=== PATIENT | female | born 1930 | race Two or more races ===

== ENCOUNTER 2019-02-22 10:17 | Inpatient (IN) | payer MEDICARE, OTHER ==
[~2019-02-22] VITALS: Ht 167.6 cm; Wt 69.9 kg
[2019-02-22 10:24] VITALS: BP 158/75
--- NOTE | 2019-02-22 10:24 | NUR ---
ED Nurse Note: Pt brought in by ambulance from home d/t weakness and hallucinations started yesterday. Per daughter, pt has been dx with UTI and finished her antibiotics for it. Pt is AAO x1 (name), follows commands. No respiratory distress. VSS.
[2019-02-22] MEDS ORDERED: REMERON15 M1 ORAL (10:30)
[2019-02-22] MEDS ORDERED: SINEMET 25-1001 EAC1 ORAL (10:30)
[2019-02-22] MEDS ORDERED: NITROFURANTOIN100 M2 ORAL (10:30)
[2019-02-22] MEDS ORDERED: LEXAPRO5 MG ORAL (10:30)
--- NOTE | 2019-02-22 10:31 | NUR ---
ED Nurse Note: PER PT'S DAUGHTER, PT STARTED HAVING HALLUSINATION AFTER TAKING MACROBID 100MG TWICE A DAY AND NOTIFIED PCP AND WAS REFERRED TO COME TO [facility] [place] [facility] ER.
--- NOTE | 2019-02-22 10:42 | Emergency Room Report ---
History of Present Illness General Chief Complaint: Generalized Weakness Source: Family Member Present Illness HPI Patient present with complaints of change in mental status Daughter reports that the patient was diagnosed last week with a UTI At that time she also had some increased confusion however seemed to improve with oral antibiotics More recently now as she finished her antibiotics again she has appeared more confused and lethargic compared to her usual self there was no reports of vomiting or diarrhea patient has underlying dementia Patient herself does not provide appropriate input and family provides most of the input Allergies: Coded Allergies: No Known Allergies (Unverified , 02/22/19) Patient History Limited by: medical condition Past Medical History: see triage record Pertinent Family History: unable to obtain Reviewed Nursing Documentation: PMH: Agreed; PSxH: Agreed Nursing Documentation-PMH Past Medical History: No History, Except For Hx Hypertension: Yes Review of Systems All Other Systems: limited - Other than the ones mentioned in the history of present illness all others are reviewed however they do stay limited due to the patient's mental status Physical Exam Vital Signs Date Time Temp Pulse Resp B/P (MAP) Pulse Ox O2 Delivery O2 Flow Rate FiO2 02/22/19 10:14 98.1 67 18 144/70 97 Room Air Sp02 EP Interpretation: reviewed, normal Head: normocephalic, atraumatic Eyes: bilateral eye PERRL, bilateral eye EOMI ENT: normal pharynx Neck: supple Respiratory: lungs clear, no retraction, no accessory muscle use Cardiovascular #1: regular rate, rhythm Gastrointestinal: non tender, soft Musculoskeletal: normal inspection Neurologic: alert, responsive Skin: normal color, no rash Lymphatic: no adenopathy Medical Decision Making Diagnostic Impression: Primary Impression: UTI (urinary tract infection) Additional Impression: Encephalopathy ER Course Patient is a fairly complex patient with multiple differential to consideration including but not limited to cardiac cardiopulmonary and vascular emergencies Neurological pathology also entertained infectious pathology Patient's urine sample does show positive nitrites given the patient's change in mental status sepsis and UTI is considered patient has further hydration and antibiotics initiated and admitted for further care Labs Test 02/22/19 10:30 02/24/19 08:20 White Blood Count 6.7 K/UL (4.8-10.8) 6.7 K/UL (4.8-10.8) Red Blood Count 5.03 M/UL (4.20-5.40) 4.77 M/UL (4.20-5.40) Hemoglobin 14.3 G/DL (12.0-16.0) 13.7 G/DL (12.0-16.0) Hematocrit 44.1 % (37.0-47.0) 42.6 % (37.0-47.0) Mean Corpuscular Volume 88 FL (80-99) 89 FL (80-99) Mean Corpuscular Hemoglobin 28.5 PG (27.0-31.0) 28.8 PG (27.0-31.0) Mean Corpuscular Hemoglobin Concent 32.5 G/DL (32.0-36.0) 32.2 G/DL (32.0-36.0) Red Cell Distribution Width 13.1 % (11.6-14.8) 13.2 % (11.6-14.8) Platelet Count 208 K/UL (150-450) 165 K/UL (150-450) Mean Platelet Volume 6.7 FL (6.5-10.1) 6.1 FL (6.5-10.1) Neutrophils (%) (Auto) 65.5 % (45.0-75.0) 49.5 % (45.0-75.0) Lymphocytes (%) (Auto) 29.1 % (20.0-45.0) 42.6 % (20.0-45.0) Monocytes (%) (Auto) 4.6 % (1.0-10.0) 6.4 % (1.0-10.0) Eosinophils (%) (Auto) 0.1 % (0.0-3.0) 0.7 % (0.0-3.0) Basophils (%) (Auto) 0.8 % (0.0-2.0) 0.8 % (0.0-2.0) Urine Color Brown Urine Appearance Clear Urine pH 5 (4.5-8.0) Urine Specific [place] 1.025 (1.005-1.035) Urine Protein 2+ (NEGATIVE) Urine Glucose (UA) Negative (NEGATIVE) Urine Ketones 2+ (NEGATIVE) Urine Blood 2+ (NEGATIVE) Urine Nitrite Positive (NEGATIVE) Urine Bilirubin 1+ (NEGATIVE) Urine Ictotest Negative (NEGATIVE) Urine Urobilinogen 1 MG/DL (0.0-1.0) Urine Leukocyte Esterase 2+ (NEGATIVE) Urine RBC 2-4 /HPF (0 - 2) Urine WBC 2-4 /HPF (0 - 2) Urine Squamous Epithelial Cells Occasional /LPF Urine Bacteria Few /HPF (NONE) Urine Mucus Few /LPF (NONE/OCC) Sodium Level 141 MMOL/L (136-145) 145 MMOL/L (136-145) Potassium Level 4.0 MMOL/L (3.5-5.1) 3.8 MMOL/L (3.5-5.1) Chloride Level 106 MMOL/L (98-107) 110 MMOL/L (98-107) Carbon Dioxide Level 26 MMOL/L (21-32) 29 MMOL/L (21-32) Anion Gap 9 mmol/L (5-15) 6 mmol/L (5-15) Blood Urea Nitrogen 19 mg/dL (7-18) 17 mg/dL (7-18) Creatinine 1.2 MG/DL (0.55-1.30) 1.2 MG/DL (0.55-1.30) Estimat Glomerular Filtration Rate mL/min (>60) mL/min (>60) Glucose Level 101 MG/DL (74-106) 93 MG/DL (74-106) Lactic Acid Level 1.40 mmol/L (0.4-2.0) Calcium Level 9.6 MG/DL (8.5-10.1) 9.2 MG/DL (8.5-10.1) Total Bilirubin 0.5 MG/DL (0.2-1.0) Aspartate Amino Transf (AST/SGOT) 13 U/L (15-37) Alanine Aminotransferase (ALT/SGPT) 10 U/L (12-78) Alkaline Phosphatase 95 U/L (46-116) Total Creatine Kinase 90 U/L (26-308) Creatine Kinase MB 1.3 NG/ML (0.0-3.6) Creatine Kinase MB Relative Index 1.4 Pro-B-Type Natriuretic Peptide 239 pg/mL (0-125) Total Protein 7.5 G/DL (6.4-8.2) Albumin 4.0 G/DL (3.4-5.0) Globulin 3.5 g/dL Albumin/Globulin Ratio 1.1 (1.0-2.7) Rhythm Strip Diag. Results EP Interpretation: yes Rate: 80 Rhythm: NSR, no PVC's, no ectopy Chest X-Ray Diagnostic Results Chest X-Ray Diagnostic Results : Chest X-Ray Ordered: Yes # of Views/Limited/Complete: 1 View Indication: Chest Pain EP Interpretation: Yes Interpretation: no consolidation, no effusion, no pneumothorax Impression: No acute disease Electronically Signed by: Jodie Guevara DO Last Vital Signs Date Time Temp Pulse Resp B/P (MAP) Pulse Ox O2 Delivery O2 Flow Rate FiO2 02/22/19 10:14 98.1 67 18 144/70 97 Room Air Status: improved Disposition: ADMITTED INPATIENT Condition: Serious Jodie Guevara DO Feb 22, 2019 10:42
--- NOTE | 2019-02-22 10:45 | NUR ---
ED Nurse Note: Blood and urine sent.
--- NOTE | 2019-02-22 10:55 | NUR ---
ED Nurse Note: implementation technician at the bed side for CXR.
[2019-02-22 11:07] LABS: APPEARANCE,URINE CLEAR; BILIRUBIN, URINE 1+ (NEGATIVE); COLOR,URINE BROWN; GLUCOSE, URINE (UA) NEGATIVE (NEGATIVE); KETONES,URINE 2+ (NEGATIVE); LEUKOCYTE ESTERASE ,URINE 2+ (NEGATIVE); NITRITE,URINE POSITIVE (NEGATIVE); PH,URINE 5 (4.5-8.0); PROTEIN,URINE 2+ (NEGATIVE); UROBILINOGEN,URINE 1 MG/DL (0.0-1.0)
[2019-02-22 11:09] LABS: BASOPHILS % (AUTO) 0.8 % (0.0-2.0); EOSINOPHILS % (AUTO) 0.1 % (0.0-3.0); HEMATOCRIT 44.1 % (37.0-47.0); HEMOGLOBIN 14.3 G/DL (12.0-16.0); LYMPHOCYTES % (AUTO) 29.1 % (20.0-45.0); MEAN CORPUSCULAR VOLUME 88 FL (80-99); MONOCYTES % (AUTO) 4.6 % (1.0-10.0); NEUTROPHILS % (AUTO) 65.5 % (45.0-75.0); PLATELET COUNT 208 K/UL (150-450); RED BLOOD COUNT 5.03 M/UL (4.20-5.40); RED CELL DISTRIBUTION WIDTH 13.1 % (11.6-14.8); WHITE BLOOD COUNT 6.7 K/UL (4.8-10.8)
[2019-02-22 11:16] LABS: ANION GAP 9 mmol/L (5-15); BLOOD UREA NITROGEN 19 mg/dL (7-18); CALCIUM 9.6 MG/DL (8.5-10.1); CARBON DIOXIDE 26 MMOL/L (21-32); CHLORIDE 106 MMOL/L (98-107); CREATININE 1.2 MG/DL (0.55-1.30); SODIUM 141 MMOL/L (136-145)
[2019-02-22 11:31] LABS: ALANINE AMINOTRANSFERASE 10 U/L (12-78); ALBUMIN/GLOBULIN RATIO 1.1 (1.0-2.7); ALKALINE PHOSPHATASE 95 U/L (46-116); ASPARTATE AMINO TRANSFERASE 13 U/L (15-37); BILIRUBIN,TOTAL 0.5 MG/DL (0.2-1.0); CKMB 1.3 NG/ML (0.0-3.6); CREATINE KINASE 90 U/L (26-308)
--- NOTE | 2019-02-22 11:31 | Diagnostic Imaging Report ---
EXAM: XR Chest, 1 View CLINICAL HISTORY: Chest pain TECHNIQUE: Frontal view of the chest. COMPARISON: No relevant prior studies available. FINDINGS: Lungs: Unremarkable. The lungs appear clear. No focal consolidation. Pleural space: Unremarkable. The costophrenic angles are sharp. No visible pneumothorax. Heart: Unremarkable. No cardiomegaly. Mediastinum: Unremarkable. Bones/joints: Degenerative changes throughout the visualized spine and shoulder joints. Tubes, lines and devices: EKG leads overlie the thorax. Upper abdomen: Surgical clips overlie the left upper abdominal quadrant. IMPRESSION: No acute findings.
[2019-02-22] MEDS ORDERED: cefTRIAXone 1 GM in NS 55 ML IVPB ONE (11:45)
--- NOTE | 2019-02-22 12:35 | NUR ---
report given to harsha patient is to be transferd to room 3202-1 . patient is to be transferd via [facility]
[2019-02-22 12:40] VITALS: BP 157/67
--- NOTE | 2019-02-22 12:40 | NUR ---
NURSE NOTES:ADMITTED 88 FEMALE FR. HOME BECAUSE OF GENERALIZED WEAKNESS/AMS SECONDARY TO H/O UTI A WEEK AGO,REPORT FR. ER.GIVEN BY SIVA GRAY.PATIENT A/O X1,FARSI SPEAKING,EXTREMITIES MOBILE,SKIN INTACT,ROOM AIR,INCONTINENT OF URINE.ACCOMPANIED BY DAUGHTER(JOSE)MED INFO TAKEN FR. SAME.LISA AT BEDSIDE.
--- NOTE | 2019-02-22 13:20 | NUR ---
NURSE NOTES:PLACED A CALL TO DR. MARIE THRU EMERGENCY SELECTION RE:NEEDS ADMISSION ORDERS.FAMILY INFORMED(JOSE)DAUGHTER.
--- NOTE | 2019-02-22 13:30 | NUR ---
NURSE NOTES:PATIENT WAS VERY AGITATED,RESTLESS,TRYING TO GET OUT OF BED,DAUGHTER WANTS SOME MED TO CALM HER DOWN.PLACED A CALL AGAIN TO DR. MARIE,AND DAUGHTER MADE AWARE.CHARGE NURSE(ABRAHAM GRAY)INFORMED.DEBBI GRAY(DAY DESIGN CONSULTANT)INFORMED ALSO THAT NO RETURN CALL FR.DR. MARIE.STATED [facility] WILL CALL .FAMILY UPDATED.
--- NOTE | 2019-02-22 14:16 | NUR ---
NURSE NOTES:DR. MARIE RETURNED CALL,ORDERS CARRIED OUT.ZYPREXA 5MG PO GIVEN.DAUGHTER AT BEDSIDE
[2019-02-22] MEDS ORDERED: ALPRAZolam 0.25mg tab ORAL PRN (14:30)
--- NOTE | 2019-02-22 15:30 | NUR ---
NURSE NOTES:PATIENT DOZING,NO SIGN OF AGITATION.SON AND SIDE SEAM TENDER AT BEDSIDE.
[2019-02-22 15:35] VITALS: BP 147/78
--- NOTE | 2019-02-22 16:00 | NUR ---
NURSE NOTES:PATIENT SITTING IN CHAIR,CONVERSANT WITH FAMILY,FARSI SPEAKING.
[2019-02-22] MEDS: Zosyn 3.375gm q8h **Extended infusion IVPB SCH ×2 (16:28)
[2019-02-22] MEDS: Levodopa/Carbidopa 25/100 tab ORAL SCH (17:55)
--- NOTE | 2019-02-22 18:30 | NUR ---
NURSE NOTES:2 DAUGHTER/SON AT BEDSIDE AT CLAIMS PATIENT IS VERY AGITATED AGAIN,AND RESTLESS,REQUESTAED FOR MED. ZYPREXA 5MG.PO GIVEN,PATIENT TOOK MED WITHOUT HESITATION.ADVISED FAMILY TO LET NURSE KNOW WHEN THEY WILL LEAVE,INSTRUCTED ALSO TO REMIND PATIENT USE OF CALL LIGHT.
--- NOTE | 2019-02-22 19:08 | NUR ---
NURSE NOTES:DR. NEIL CALLED IN CONSULT.UPDATED PATIENTS STATUS AND CURRENT MEDS.ORDERS CARRIED OUT.FAMILY INFORMED.
--- NOTE | 2019-02-22 19:20 | NUR ---
HAND-OFF: Report given to SILVIANO GRAY.PATIENT STABLE,FAMILY AT BEDSIDE.
--- NOTE | 2019-02-22 19:21 | NUR ---
NURSE NOTES: Received report & pt from ISAAC Jenkins. Pt lying in bed, a&ox1 (name), in room air, family members at bedside. No s/s of acute distress & no s/s of pain at this time. IV site intact with IVF running as ordered. Skin intact, able to move all extremities. Bed in lowest position & bed alarm on, call light within reach. Will continue to monitor.
[2019-02-22 20:00] VITALS: BP 144/75
--- NOTE | 2019-02-22 23:25 | NUR ---
NURSE NOTES: Pt became restless & even more agitated. Also trying to get out of bed. Re-oriented pt & tried to calm down. Made sure bed alarm is on. Charge nurse Se at bedside with pt. Called Dr. Sanabria & left a msg for additional orders for pt's increased agitation. Awaiting call back.
[2019-02-22] MEDS ORDERED: Haloperidol Decanoate 50mg Inj IM PRN ×2 (23:30→23:45)
--- NOTE | 2019-02-22 23:33 | NUR ---
NURSE NOTES: Dr. Sanabria called back with new orders for Ativan 1mg PO Q6HR PRN & Haldol 5mg IM Q6HR PRN both for agitation. Orders carried out.
[2019-02-22] MEDS: LORazepam 1mg tab ORAL PRN ×2 (23:50→23:56)
--- NOTE | 2019-02-22 23:50 | NUR ---
NURSE NOTES: RN pulled out ativan 1mg PO from pyxis. Upon administering med to pt, pt spit out the whole medication & dropped tablet on the floor with charge nurse Se at bedside with pt. Wasted the ativan in pyxis as witnessed by ISAAC Jose. RN pulled another dose & scanned in eMAR, this time pt was able to swallow the whole medication.
[2019-02-23 04:47] VITALS: BP 157/70
[2019-02-23] MEDS: Zosyn 3.375gm q8h **Extended infusion IVPB SCH ×6 (05:06→22:32)
[2019-02-23] MEDS ORDERED: Haloperidol 5mg/ml Inj IM PRN (07:00)
--- NOTE | 2019-02-23 07:24 | NUR ---
HAND-OFF: Report given to ISAAC Lara. Pt in stable condition. Rounds done with AM RN shift.
--- NOTE | 2019-02-23 07:57 | NUR ---
NURSE NOTES: Received report from Lazara GRAY. Patient is awake alert and oriented x1 only. Patient is confused. Attempted to put on SCD's, but patient tried to hit staff when attempted. IV running Zosyn per order. Patient clean and dry at this time. Fall precautions maintained, side rails upx2, bed low and locked, bed alarm armed, call light in reach. Will continue to monitor.
[2019-02-23 08:00] VITALS: BP 137/99
[2019-02-23] MEDS ORDERED: ALPRAZolam 0.5mg tab ORAL SCH (09:00)
[2019-02-23] MEDS: Donepezil 10mg tab ORAL SCH (09:38)
[2019-02-23] MEDS: Irbesartan 150mg tablet ORAL SCH (09:38)
[2019-02-23] MEDS: Levodopa/Carbidopa 25/100 tab ORAL SCH ×2 (09:39→20:34)
--- NOTE | 2019-02-23 10:06 | NUR ---
NURSE NOTES: Bed linens changed and patient clean. Skin assessed intact, moisture barrier ointment applied to buttocks and gael area for skin protection. Patient repositioned. Patient's daughter at the bedside. Will continue to monitor.
[2019-02-23 12:00] VITALS: BP 108/57
--- NOTE | 2019-02-23 13:27 | History & Physical ---
History and Physical History & Physicial HP dictated # [id number] Cornelio Ferrer MD Feb 23, 2019 13:27
--- NOTE | 2019-02-23 13:51 | NUR ---
NURSE NOTES: Urine culture collected and sent to lab.
[2019-02-23] MEDS: LORazepam 1mg tab ORAL PRN (15:44)
[2019-02-23 16:00] VITALS: BP 140/107
--- NOTE | 2019-02-23 17:30 | NUR ---
NURSE NOTES: Patient given full bed bath, cleaned, changed. All bed linens changed. Patient's son is at the bedside. Patient continues to be agitated. Will continue to monitor.
--- NOTE | 2019-02-23 19:05 | NUR ---
NURSE NOTES: Patient appears less agitated. Patient's children are at the bedside. Will endorse to nightclub manager.
--- NOTE | 2019-02-23 19:33 | NUR ---
HAND-OFF: Report given to Rebeca GRAY. Patient is in stable condition.
--- NOTE | 2019-02-23 19:38 | NUR ---
NURSE NOTES: Received report from ISAAC Lara. Patient is in bed, resting well. No agitation noted. IV site patent. Family at bedside. Bed low, bed alarm on. Will continue to monitor. call light within reach.
[2019-02-23 20:00] VITALS: BP 107/52
--- NOTE | 2019-02-23 21:42 | NUR ---
NURSE NOTES: Family requesting to hold Zyprexa this evening. No agitation noted. Will continue to monitor.
--- NOTE | 2019-02-23 21:45 | History and Physical Report ---
DATE OF ADMISSION: 02/22/2019 CHIEF COMPLAINT: The patient had some chills at home. HISTORY OF PRESENT ILLNESS: This is an 88-year-old [place] female who lives at home with a caregiver. The patient had a recent urinary tract infection, was given nitrofurantoin by PMD. Last week, she finished taking it however on Sunday she started having chills. PMD was called and she advised to take the patient to the emergency room yesterday. The patient was seen in the ER here and UA showing 2 to 4 wbc's per high-power field and 2+ protein, not very impressive, however the patient was admitted with diagnosis of urinary tract infection. The patient was started on antibiotics. Daughter noticed that the patient also has some slurred speech today and before admission she was agitated, not sleeping. PAST MEDICAL HISTORY: History of hypertension. MEDICATIONS: Reviewed in the EMR. SOCIAL HISTORY: No history of smoking or alcohol abuse. The patient lives at home with caregiver. ALLERGIES: No known drug allergies. REVIEW OF SYSTEMS: As above. PHYSICAL EXAMINATION: GENERAL: The patient is an elderly female, in no acute distress. VITAL SIGNS: Blood pressure is 108/57, pulse 58, temperature 98.6, respiratory rate 19. HEENT: [place] conjunctivae. Anicteric sclerae. NECK: Supple. LUNGS: Clear to auscultation HEART: S1, S2 without murmurs or rubs ABDOMEN: Soft and nontender. EXTREMITIES: No cyanosis or edema. LABORATORY FINDINGS: CBC shows a WBC of 6700, hematocrit is 44.1, hemoglobin is 14.3, platelets 208,000. Chemistry panel shows a serum sodium 141, potassium 4, chloride 106, CO2 26, BUN is 19, creatinine 1.2. Albumin is 4. Lactic acid 1.4. ASSESSMENT: This is a 88-year-old [place] female who was admitted with some agitation, not sleeping for the past couple days, it appears that she has history of underlying dementia as well. She was recently treated for urinary tract infection. She was admitted for chills, was thought to have urinary tract infection again although urinalysis is not very impressive. This morning also she had some slurred speech which is new according to the daughter. PLAN: The patient will be on antibiotics. I will get urine cultures and if the culture is negative, we will discontinue antibiotics. We will get also a psychiatry consult. Physical therapy will be ordered. The patient will be seen by psychiatrist for management of agitation. She was started on Zyprexa last night and she appears calm at this point. Cornelio Ferrer M.D. DR: Ange JOB#: [id number] CC: JOHANNA
[2019-02-23] MEDS ORDERED: ALPRAZolam 0.25mg tab ORAL PRN (22:30)
[2019-02-24] VITALS: BP 121/81
[2019-02-24 04:00] VITALS: BP 106/52
[2019-02-24] MEDS: Zosyn 3.375gm q8h **Extended infusion IVPB SCH ×6 (05:34→22:22)
--- NOTE | 2019-02-24 07:03 | NUR ---
NURSE NOTES: Patient did not void shift leader. Bladder scanner showed 0ml residual. Dr. Ferrer called. Awaiting call back.
--- NOTE | 2019-02-24 07:32 | NUR ---
HAND-OFF: Report given to ISAAC Barillas. Patient stable.
--- NOTE | 2019-02-24 07:43 | NUR ---
NURSE NOTES: Received report from ISAAC Jose. Rounding done with outgoing nurse. Patient asleep and Zosyn antibiotics running at this time. Bed in lowest position, call light within reach. Will continue to [facility].
[2019-02-24 08:00] VITALS: BP 110/73
[2019-02-24] MEDS: D5 1/2NS 1,000 ML IV SCH ×2 (08:43→22:23)
[2019-02-24] MEDS: Donepezil 10mg tab ORAL SCH (08:51)
[2019-02-24] MEDS: Levodopa/Carbidopa 25/100 tab ORAL SCH ×2 (08:51→20:33)
[2019-02-24] MEDS: Irbesartan 150mg tablet ORAL SCH (08:51)
[2019-02-24 08:54] LABS: BASOPHILS % (AUTO) 0.8 % (0.0-2.0); EOSINOPHILS % (AUTO) 0.7 % (0.0-3.0); HEMATOCRIT 42.6 % (37.0-47.0); HEMOGLOBIN 13.7 G/DL (12.0-16.0); LYMPHOCYTES % (AUTO) 42.6 % (20.0-45.0); MEAN CORPUSCULAR VOLUME 89 FL (80-99); MONOCYTES % (AUTO) 6.4 % (1.0-10.0); NEUTROPHILS % (AUTO) 49.5 % (45.0-75.0); PLATELET COUNT 165 K/UL (150-450); RED BLOOD COUNT 4.77 M/UL (4.20-5.40); RED CELL DISTRIBUTION WIDTH 13.2 % (11.6-14.8); WHITE BLOOD COUNT 6.7 K/UL (4.8-10.8)
[2019-02-24] MEDS ORDERED: ALPRAZolam 0.5mg tab ORAL SCH (09:00)
[2019-02-24 09:06] LABS: ANION GAP 6 mmol/L (5-15); BLOOD UREA NITROGEN 17 mg/dL (7-18); CALCIUM 9.2 MG/DL (8.5-10.1); CARBON DIOXIDE 29 MMOL/L (21-32); CHLORIDE 110 MMOL/L (98-107); CREATININE 1.2 MG/DL (0.55-1.30); POTASSIUM 3.8 MMOL/L (3.5-5.1); SODIUM 145 MMOL/L (136-145)
--- NOTE | 2019-02-24 10:36 | NUR ---
P.T Notes: P.T evaluation attempted however unsuccessful due to patient too lethargic to participate in P.T evaluation. Will reattempt when pt is fully awake and participative. RN notified.
--- NOTE | 2019-02-24 11:20 | Initial Psychiatric Evaluation ---
Psychiatry Consultation Psychiatry Consultation Referring physician: 02/23/19 Chief Complaint: Generalized Weakness History of Present Illness: 88-year-old Vietnamese female with hx of anxiety do and dementia with behavioral disturbance who is admitted for uti and AMS. the pt is confused and has av hallucination. the pt is disorganized and unable to provide hx. the hx was gathered from the daughter. the pt has been more confused over the past several days. the pt has hx of anxiety and has been taking xanax for 30 years. Allergies: Coded Allergies: No Known Allergies (Unverified , 02/22/19) Medication History Scheduled Carbidopa/Levodopa 25-100 Mg* (Sinemet 25-100 Mg Tablet*), 1 TAB ORAL THREE TIMES A DAY, (Reported) Escitalopram Oxalate (Lexapro), 10 MG ORAL DAILY, (Reported) Mirtazapine (Remeron), 15 MG ORAL BEDTIME, (Reported) Nitrofurantoin Monohyd/M-Cryst* (Macrobid 100 Mg*), 100 MG ORAL EVERY 12 HOURS, (Reported) Patient History Limited by: medical condition History Provided By: Family Member, Medical Record, PMD Objective Data Height (Feet): 5 Height (Inches): 6.00 Weight (Pounds): 154 Appearance: no abnormalities noted Behavior Mannerisms: good eye contact Mood: anxious, agitated Thought Process: tangential, confusion, disorganized Perceptual Disturbances: visual, auditory Suicidal Ideation: not present Assessment/Plan Problem List: (1) Acute metabolic encephalopathy ICD Codes: G93.41 - Metabolic encephalopathy SNOMED: 81248549, 107068108 Assessment/Plan: zyprexa 5mg po qhs dc xanax remeron 15mg po qhs zyprexa prn ativan Mirtha Sparks MD Feb 24, 2019 11:20
[2019-02-24 12:00] VITALS: BP 145/76
[2019-02-24] MEDS: ALPRAZolam 0.25mg tab ORAL SCH ×3 (13:00→22:22)
--- NOTE | 2019-02-24 13:11 | NUR ---
CASE MANAGEMENT:REVIEW 88YR OLD FEMALE BIBA FROM HOME CC: CHILLS. GENERALIZED WEAKNESS PMH: RECENT UTI ON ABX SI:UTI. GENERALIZED WEAKNESS 98.1 67 18 144/70 97% ON RA IS: 1L NS BOLUS IV ROCEPHIN Q24 CXR BLOOD CX : TO MED/SURG 3 EAST INTERQUAL CRITERIA MET
--- NOTE | 2019-02-24 13:24 | General Progress Note ---
Assessment/Plan Problem List: (1) Parkinson disease ICD Codes: G20 - Parkinson's disease SNOMED: 64516251 (2) Dementia ICD Codes: F03.90 - Unspecified dementia without behavioral disturbance SNOMED: 79232424 (3) Generalized weakness ICD Codes: R53.1 - Weakness SNOMED: 83802002 (4) HTN (hypertension) ICD Codes: I10 - Essential (primary) hypertension SNOMED: 43191274 Assessment/Plan: DC antibiotics since urine culture is negative. Await neurology consult. Psychiatry follow-up. Physical therapy I discussed the case with daughter. Subjective Allergies: Coded Allergies: No Known Allergies (Unverified , 02/22/19) Subjective Patient is better today. She feels somewhat dizzy. Objective Last 24 Hour Vital Signs Date Time Temp Pulse Resp B/P (MAP) Pulse Ox O2 Delivery O2 Flow Rate FiO2 02/24/19 12:00 97.8 66 18 145/76 (99) 96 02/24/19 09:00 Room Air 02/24/19 08:52 59 110/73 02/24/19 08:51 110/73 02/24/19 08:00 98.1 59 18 110/73 (85) 96 02/24/19 04:10 57 02/24/19 04:00 97.6 51 20 106/52 (70) 96 02/24/19 00:00 98.0 69 16 121/81 (94) 96 02/23/19 21:00 Room Air 02/23/19 20:00 98.7 69 16 107/52 (70) 96 02/23/19 16:00 97.6 72 17 140/107 (118) 95 Intake and Output 02/23/19 02/24/19 19:00 07:00 Intake Total 512.5 ml 25 ml Balance 512.5 ml 25 ml Intake Oral 320 ml 25 ml IV Total 192.5 ml # Voids 3 Laboratory Tests 02/24/19 08:20: White Blood Count 6.7, Red Blood Count 4.77, Hemoglobin 13.7, Hematocrit 42.6, Mean Corpuscular Volume 89, Mean Corpuscular Hemoglobin 28.8, Mean Corpuscular Hemoglobin Concent 32.2, Red Cell Distribution Width 13.2, Platelet Count 165, Mean Platelet Volume 6.1L, Neutrophils (%) (Auto) 49.5, Lymphocytes (%) (Auto) 42.6, Monocytes (%) (Auto) 6.4, Eosinophils (%) (Auto) 0.7, Basophils (%) (Auto ) 0.8, Sodium Level 145, Potassium Level 3.8, Chloride Level 110H, Carbon Dioxide Level 29, Anion Gap 6, Blood Urea Nitrogen 17, Creatinine 1.2, Estimat Glomerular Filtration Rate , Glucose Level 93, Calcium Level 9.2 Height (Feet): 5 Height (Inches): 6.00 Weight (Pounds): 154 Cardiovascular: normal rate Respiratory/Chest: lungs clear Genitourinary/Rectal: other Cornelio Ferrer MD Feb 24, 2019 13:24
--- NOTE | 2019-02-24 15:45 | NUR ---
NURSE NOTES: Dr. Leary ordered 1. strict I&O 2. Bladder scan BID and call if >500ml. Noted and carried out.
--- NOTE | 2019-02-24 15:52 | NUR ---
NURSE NOTES: Bladder scan was done. (R: 252 ml) Dr. Leary was notified.
[2019-02-24 16:00] VITALS: BP 113/60
--- NOTE | 2019-02-24 19:24 | NUR ---
HAND-OFF: Report given to ISAAC Jose.
--- NOTE | 2019-02-24 19:41 | NUR ---
NURSE NOTES: Received report from ISAAC Barillas.
--- NOTE | 2019-02-24 19:53 | Psych Consult Progress Note ---
Psychiatry Progress Note Psychiatry Progress Note Subjective the pt is less anxious and agitated the pt is confused family at bedside Medications Current Medications Medications (Trade) Dose Ordered Sig/Riri Route PRN Reason Start Time Stop Time Status Last Admin Dose Admin Alprazolam (Xanax) 0.25 mg QHS PRN ORAL For Anxiety 02/23/19 22:30 03/02/19 22:29 Alprazolam (Xanax) 0.25 mg TID ORAL 02/24/19 13:00 03/03/19 12:59 Atenolol (Tenormin) 50 mg DAILY ORAL 02/23/19 09:00 03/25/19 08:59 02/24/19 08:52 Atorvastatin Calcium (Lipitor) 10 mg BEDTIME ORAL 02/22/19 21:00 03/24/19 20:59 02/23/19 20:35 Carbidopa/Levodopa (Sinemet 25/100) 1 tab Q12HR ORAL 02/22/19 18:00 03/24/19 17:59 02/24/19 08:51 Dextrose/Sodium Chloride 1,000 ml @ 75 mls/hr [id number] IV 02/24/19 07:45 03/26/19 07:44 02/24/19 08:43 Donepezil HCl (Aricept) 10 mg DAILY ORAL 02/23/19 09:00 03/25/19 08:59 02/24/19 08:51 Escitalopram Oxalate (Lexapro) 20 mg DAILY ORAL 02/25/19 09:00 03/27/19 08:59 Haloperidol Lactate (Haldol) 5 mg Q6H PRN IM For agitation 02/23/19 07:00 03/24/19 23:44 Irbesartan (Avapro) 150 mg DAILY ORAL 02/23/19 09:00 03/25/19 08:59 02/24/19 08:51 Mirtazapine (Remeron) 7.5 mg BEDTIME ORAL 02/24/19 21:00 03/26/19 20:59 Olanzapine (ZyPREXA) 5 mg Q6H PRN ORAL Agitation 02/22/19 19:15 03/24/19 19:14 02/23/19 06:31 Olanzapine (ZyPREXA) 5 mg QHS ORAL 02/22/19 21:00 03/24/19 20:59 02/22/19 20:19 Piperacillin Sod/ Tazobactam Sod 3.375 gm/Sodium Chloride 110 ml @ 27.5 mls/hr EVERY 8 HOURS IVPB 02/22/19 16:00 02/27/19 15:59 02/24/19 13:48 Neurological/Psychiatric: Reports: anxiety, depressed Allergies: Coded Allergies: No Known Allergies (Unverified , 02/22/19) Objective Data Height (Feet): 5 Height (Inches): 6.00 Weight (Pounds): 154 General Appearance: alert, confused, agitated Appearance: well groomed Behavior Mannerisms: good eye contact Mental Status Exam - Affect: blunted Mental Status Exam - Mood: anxious, agitated Mental Status Exam - Thought P: tangential, confusion, disorganized Mental Status Exam - Thought C: delusions (specify) Perceptual Disturbances: hallucinations, visual, auditory Mental Status Exam - Suicidal: not present Assessment/Plan Problem List: (1) Acute metabolic encephalopathy ICD Codes: G93.41 - Metabolic encephalopathy SNOMED: 49376896, 690668672 Status: progressing Assessment/Plan: zyprexa 5mg po qhs restart xanax per family's request remeron 15mg po qhs zyprexa prn Mirtha Sanabria MD Feb 24, 2019 19:53
[2019-02-24 20:00] VITALS: BP 154/75
--- NOTE | 2019-02-24 20:45 | NUR ---
NURSE NOTES: Patient awake, alert, talkative. AOx2. Less, lethargy, no agitation. Reoriented patient. IV site patent. Due meds given, needs attended to. Bed low, call light within reach.
--- NOTE | 2019-02-24 22:15 | Consultation ---
Consult Note Consult Note NEUROLOGY CONSULTATION: Full note dictated #[id number] 88-year-old, right-handed, lady, with a past history of hypertension, bilateral knee surgery, and a diagnosis of Alzheimer's disease and Parkinson's disease made at [facility]. She also has a long history of anxiety and depression for which she has been on Xanax for numerous years. She was functioning relatively well until recently when she developed an alteration in her level of consciousness and shaking chills. She was started on medicine for a urinary tract infection and improved significantly following that. She did however had a relapse of generalized weakness, and weakness of her legs when she stood, and as a result of that was brought into [facility] emergency room and admitted. When she was brought in she was confused disoriented agitated having auditory and visual hallucinations and not her normal self. Since she has been in the hospital she has improved significantly as per her son. ON EXAMINATION: Awake and alert Oriented to self only Memory: 3/3-0, 0/3-1 and 3 Unable to remember presidents. Unable to do math. Unable to do visual-spatial problems. Speech mildly dysarthric Language problems with expression of language Cranial nerves II through XII intact. Motor G 5/5. Sensory intact light touch. Reflexes: 1+ and bilaterally symmetrical at the biceps, triceps, brachioradialis, and knees. 0 at both ankles. Plantar responses flexor. Dopzxd-xm-[id number] normal. Stance and gait deferred. IMPRESSION: Toxic metabolic encephalopathy superimposed on structural brain disease related to Alzheimer's disease. The patient does not demonstrate any signs of Parkinson's disease at this point in time. Thus the diagnosis of Parkinson's disease is suspect. RECOMMENDATIONS: Continue present management. Continue Aricept. Treatment of psychiatric illness as per Dr. Sanabria If the patient continues to demonstrate no signs of Parkinson's disease then Sinemet should be discontinued as that could be causing more agitation. We will order EEG to evaluate the patient for the degree and type of encephalopathy. Work-up for treatable causes of altered mental state. Mobilize with the help of PT and OT Observe closely. Bennie Tim M.D., M.S.P.H. Bennie Tim MD Feb 24, 2019 22:15
--- NOTE | 2019-02-24 22:15 | Consultation ---
DATE OF CONSULTATION: 02/24/2019 CONSULTING PHYSICIAN: Kassi Leary M.D. REQUESTING PHYSICIAN: Cornelio Ferrer M.D. REASON FOR CONSULTATION: Difficulty in urination and urinary incontinence. PRESENT ILLNESS: This is an 88-year-old white female, who was admitted to the hospital with a diagnoses of dementia, being chills, questionable fever, and questionable urinary tract infection. The patient was monitored and was placed on antibiotics and a neurological consult was obtained. The patient had a bladder scan, which showed a range of 100 mL to 200 mL of residual urine. However, the latest BUN is 17 and creatinine of 1.2. The patient's latest white blood count is 6.7. Today, according to the family of the patient, she is doing much better, more alert, and communicating well without any apparent complaint. The patient has few episodes of urinary tract infection in the past, but not recently, but she has a problem with incontinence and wearing diaper. PHYSICAL EXAMINATION: UROLOGICAL: Urological exam confined to the abdomen, which showed no organomegaly, tenderness, or mass. EXTERNAL GENITALIA: Negative. BACK: No CVA tenderness. EXTREMITIES: Negative. IMPRESSION: Urinary incontinence, rule out urinary tract infection. The urine culture was obtained yesterday and it was checked and there is no growth at this time. Thank you very much for giving me opportunity to see the patient. Kassi Leary M.D. DR: VALERIANO JOB#: [id number] CC:
--- NOTE | 2019-02-24 23:45 | Consultation ---
DATE OF CONSULTATION: 02/24/2019 NEUROLOGY CONSULTATION CONSULTING PHYSICIAN: Bennie Tim M.D. REQUESTING PHYSICIAN: Cornelio Ferrer M.D. HISTORY: Ms. Bailey Orozco is an 88-year-old, right-handed, lady, who does have a past history of hypertension, bilateral knee surgery, and a diagnosis of Alzheimer disease and Parkinson disease made at [facility]. She also has a history of anxiety and depression, for which she has been on Xanax for numerous years. She was functioning relatively well until recently when she developed an alteration in her mental state and shaking chills. She was started on medicine for a urinary tract infection and improved significantly following that. She then, however, had a relapse of symptoms associated with generalized weakness, shakiness, and weakness in the legs when she stood and as a result of that she was brought into the [facility] emergency room and admitted on 02/22/2019. She was noted to be confused, disoriented, agitated, and was having auditory and visual hallucinations. She was treated with multiple different neuroleptic drugs and has since improved. As per her son, she is significantly better today. She, however, continues to be confused, disoriented, and still not back to her normal self. PAST MEDICAL HISTORY: Significant for hypertension, bilateral knee surgery, Alzheimer disease, Parkinson disease, anxiety, and depression. FAMILY HISTORY: Nothing significant. PERSONAL HISTORY: Home: She lives at home with family. Work: She is retired housewife. Habits: There is no history of alcohol, tobacco, or illicit drug use. MEDICATIONS: Present medications include Lexapro, Remeron, Xanax, Aricept, atenolol, Avapro, Haldol p.r.n., atorvastatin, Zyprexa, Sinemet 25/100 twice a day, and Zosyn. PHYSICAL EXAMINATION: GENERAL: She is a well-developed, well-nourished, pleasant lady, lying in bed, in no acute distress. VITAL SIGNS: Pulse 68/minute, blood pressure 154/75 mmHg, respirations 18/minute, and temperature 97.5 degrees Fahrenheit. HEAD: Normocephalic and atraumatic. EENT: Examination benign. NECK: No neck rigidity was observed. NEUROLOGIC EXAMINATION: MENTAL STATUS EXAMINATION: She was awake and alert. She was oriented to self only. She had no idea of where she was or what the date it was. She was able to recall 3/3 words immediately, but could not remember any of them in 1 minute and 3 minutes. She was unable to tell me who the present President was and who prior presidents were. Her mathematical skills were impaired. Her visuospatial function was also impaired. SPEECH: She had a mild dysarthria. LANGUAGE: She had problems with expression of language, but she was able to comprehend relatively well. CRANIAL NERVE EXAMINATION: II: The visual dias were intact on confrontation testing. III, IV & : The external ocular movements were full and the pupils were 3 mm in diameter and equal, round, regular, and reactive to light. V: She had normal facial sensations, and the temporales, masseters, and pterygoids functioned normally. VII: She had normal facial expressions and no facial asymmetry. VIII: She was able to hear well bilaterally and had no nystagmus. IX: The palate moved symmetrically on phonation. X: She had no hoarseness of voice. XI: The sternocleidomastoids and trapezii functioned normally. XII: The tongue was in the midline without any fasciculations or atrophy. MOTOR SYSTEM: The tone was normal in all four extremities. Examination of muscle mass revealed no focal wasting. Examination of power revealed G 5/5 power in all muscle groups. SENSORY EXAMINATION: She had intact sensations to pinprick and light touch. REFLEXES: 1+ and bilaterally symmetrical at the biceps, triceps, brachioradialis, and knees and 0 at both ankles. The plantar responses were flexor bilaterally. COORDINATION: She performed well on [id number]-jr-xzlf testing. She was unable to perform lydc-sa-nvmo testing. STANCE & GAIT: Deferred. DIAGNOSTIC IMPRESSION: 1. Ms. Bailey Orozco is an 88-year-old, right-handed, lady, who does have a past history of hypertension, bilateral knee surgery, Alzheimer's disease, Parkinson's disease, and a long history of anxiety and depression. She was hospitalized for generalized weakness, unsteadiness on her feet, and what was felt to be an infectious process. She has since been started on appropriate antibiotics, fluids and electrolytes, and as per her son, has improved significantly. In addition, she has also been given neuroleptics and Aricept. 2. On neurological examination, at this time, she is awake and alert, but oriented to self only. She has significant problems with recent and remote memory, visuospatial function, higher cognitive function, and language. In addition, she has a mild dysarthria. She, however, does not demonstrate any focal or lateralizing neurological findings. The deep tendon reflexes are globally diminished. 3. Laboratory data revealed a relatively normal CBC, a relatively normal chemistry panel, elevated BNP at 239 and on admission, her urinalysis revealed 2+ leukocyte esterase and 2-4 red blood cells and white blood cells per high-power field. 4. The patient's history and neurological examination associated with the laboratory data are most consistent with a toxic metabolic encephalopathy, superimposed on structural brain disease related to Alzheimer disease. At this point in time, the patient is not exhibiting any signs of Parkinson's disease and thus the diagnosis is suspect. RECOMMENDATIONS: 1. Agree with management thus far. 2. Would continue Aricept. 3. Treatment of psychiatric illness as per Dr. Sanabria. 4. If the patient continues to demonstrate no signs of Parkinson disease, then the Sinemet should be discontinued as it could cause more agitation. 5. An EEG will be ordered to evaluate the patient for the degree and type of encephalopathy. 6. The patient should be worked up thoroughly for other treatable causes of altered mental state, with in addition to the laboratory tests already done, a B12 level, folate level, vitamin D level, ESR, RPR, glycohemoglobin, Westergren sedimentation rate, TSH, and serum ammonia. 7. The patient should be mobilized with the help of physical and occupational therapy. 8. The patient will be observed closely and depending on how she fares over the next day or so, further recommendations will be given. Thank you for entrusting me with the care of Ms. Orozco. I shall follow her with you. Bennie Tim M.D., M.S.P.H. DR: AVA JOB#: [id number] JOHANNA
[2019-02-25] VITALS: BP 147/72
[2019-02-25 04:00] VITALS: BP 156/70
[2019-02-25] MEDS: Zosyn 3.375gm q8h **Extended infusion IVPB SCH ×6 (06:03→21:57)
--- NOTE | 2019-02-25 07:12 | NUR ---
NURSE NOTES: 0500 bladder scan 105 ml. 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
[2019-02-25 08:00] VITALS: BP 144/66
--- NOTE | 2019-02-25 08:08 | NUR ---
NURSE NOTES: during shift change patient alert awake verbal, stating she want to go home when Dr. Ferrer comes" oriented to person, and place. call light with in reach,bed on low position locked, alarm on, Purewick in place, IV running. will continue to monitor.
--- NOTE | 2019-02-25 08:55 | NUR ---
PT EVALUATION NOTE Patient seen for initial evaluation, see complete evaluation for details. Patient presents with generalized weakness, impaired balance and deficits in functional mobility. Patient will benefit from skilled inpatient PT intervention to address strength, balance, safety and functional mobility. Recommend discharge home with home PT and full-time caregiver vs short term SNF for further rehab depending on patient's progress once medically cleared by MD. DME needs to be determined. Addendum: 02/25/19 at 1016 by KEHINDE SCOTT PT Amended: Links added.
[2019-02-25] MEDS: Levodopa/Carbidopa 25/100 tab ORAL SCH ×2 (10:14→21:56)
[2019-02-25] MEDS: Irbesartan 150mg tablet ORAL SCH (10:14)
[2019-02-25] MEDS: Donepezil 10mg tab ORAL SCH (10:14)
[2019-02-25] MEDS: ALPRAZolam 0.25mg tab ORAL SCH ×2 (10:15→18:24)
[2019-02-25 12:44] VITALS: BP 139/71
[2019-02-25] MEDS: D5 1/2NS 1,000 ML IV SCH (13:08)
[2019-02-25] MEDS ORDERED: LIPITOR10 MG ORAL (14:49)
[2019-02-25] MEDS ORDERED: DONEPEZIL HCL10 MG ORAL (14:49)
[2019-02-25] MEDS ORDERED: LEXAPRO10 MG ORAL (14:49)
[2019-02-25] MEDS ORDERED: ATENOLOL50 MG ORAL (14:49)
[2019-02-25] MEDS ORDERED: OLANZAPINE5 MG ORAL (14:49)
[2019-02-25] MEDS ORDERED: ALPRAZOLAM0.25 MG ORAL (14:49)
[2019-02-25] MEDS ORDERED: D5 1/2NS 1000ml IV ONE (14:52)
--- NOTE | 2019-02-25 14:57 | General Progress Note ---
Assessment/Plan Problem List: (1) Parkinson disease ICD Codes: G20 - Parkinson's disease SNOMED: 26525206 (2) Dementia ICD Codes: F03.90 - Unspecified dementia without behavioral disturbance SNOMED: 23790322 (3) Generalized weakness ICD Codes: R53.1 - Weakness SNOMED: 30586593 (4) HTN (hypertension) ICD Codes: I10 - Essential (primary) hypertension SNOMED: 91143351 Status: progressing Assessment/Plan: Continue with current medications. I discussed the case with Dr. Sanabria. Discharge today after seen by her Subjective Allergies: Coded Allergies: No Known Allergies (Unverified , 02/22/19) Subjective She is able to communicate today. She appears to be calm Objective Last 24 Hour Vital Signs Date Time Temp Pulse Resp B/P (MAP) Pulse Ox O2 Delivery O2 Flow Rate FiO2 02/25/19 12:44 98.2 66 20 139/71 (93) 98 02/25/19 10:18 57 144/66 02/25/19 10:14 144/66 02/25/19 08:00 97.3 57 20 144/66 (92) 94 02/25/19 04:00 97.5 53 18 156/70 (98) 95 02/25/19 00:00 97.8 62 18 147/72 (97) 97 02/24/19 21:00 Room Air 02/24/19 20:00 97.5 68 18 154/75 (101) 97 02/24/19 16:00 98.0 59 18 113/60 (77) 94 Intake and Output 02/24/19 02/25/19 18:59 06:59 Intake Total 1220.0 ml 945 ml Output Total 200 ml 300 ml Balance 1020.0 ml 645 ml Intake Oral 360 ml 120 ml IV Total 860.0 ml 825 ml Output Urine Total 200 ml 300 ml # Voids 2 Laboratory Tests 02/25/19 06:10: Erythrocyte Sedimentation Rate 18, Hemoglobin A1c 5.5, Ammonia 20, Vitamin B12 Level 525, Vitamin D 25-Hydroxy [Pending], 25-Hydroxy Vitamin D2 [Pending], 25- Hydroxy Vitamin D3 [Pending], Folate 16.9, Thyroid Stimulating Hormone (TSH) 0.490, Rapid Plasma Reagin [Pending] Height (Feet): 5 Height (Inches): 6.00 Weight (Pounds): 154 Cardiovascular: normal rate Respiratory/Chest: lungs clear Edema: no edema noted Generalized Cornelio Ferrer MD Feb 25, 2019 14:57
--- NOTE | 2019-02-25 15:42 | NUR ---
NURSE NOTES: Patient family aware regarding discharge patient confused currently and Dr. Sanabria spoke to Dr. Ferrer discharge canceled family want patient to go to rehab. aware. waiting for order.
--- NOTE | 2019-02-25 15:49 | Psych Consult Progress Note ---
Psychiatry Progress Note Psychiatry Progress Note Subjective the pt was given risperdal since she was agitated and more psychotic. the pts family requested for xanax the pt family agreed to change the meds/ the pt sigbificantly improved after risperdal Medications Current Medications Medications (Trade) Dose Ordered Sig/Riri Route PRN Reason Start Time Stop Time Status Last Admin Dose Admin Alprazolam (Xanax) 0.25 mg TID ORAL 02/24/19 13:00 03/03/19 12:59 02/25/19 10:15 Atenolol (Tenormin) 50 mg DAILY ORAL 02/23/19 09:00 03/25/19 08:59 02/24/19 08:52 Atorvastatin Calcium (Lipitor) 10 mg BEDTIME ORAL 02/22/19 21:00 03/24/19 20:59 02/24/19 20:33 Carbidopa/Levodopa (Sinemet 25/100) 1 tab Q12HR ORAL 02/22/19 18:00 03/24/19 17:59 02/25/19 10:14 Dextrose/Sodium Chloride 1,000 ml @ 75 mls/hr [id number] IV 02/24/19 07:45 03/26/19 07:44 02/25/19 13:08 Donepezil HCl (Aricept) 10 mg DAILY ORAL 02/23/19 09:00 03/25/19 08:59 02/25/19 10:14 Escitalopram Oxalate (Lexapro) 20 mg DAILY ORAL 02/25/19 09:00 03/27/19 08:59 02/25/19 10:15 Haloperidol Lactate (Haldol) 5 mg Q6H PRN IM For agitation 02/23/19 07:00 03/24/19 23:44 Irbesartan (Avapro) 150 mg DAILY ORAL 02/23/19 09:00 03/25/19 08:59 02/25/19 10:14 Piperacillin Sod/ Tazobactam Sod 3.375 gm/Sodium Chloride 110 ml @ 27.5 mls/hr EVERY 8 HOURS IVPB 02/22/19 16:00 02/27/19 15:59 02/25/19 13:08 Risperidone (RisperDAL) 0.5 mg Q6H PRN ORAL Agitation 02/25/19 15:45 03/27/19 15:44 UNV Risperidone (RisperDAL) 2 mg BEDTIME ORAL 02/25/19 21:00 03/27/19 20:59 UNV Neurological/Psychiatric: Reports: anxiety Allergies: Coded Allergies: No Known Allergies (Unverified , 02/22/19) Objective Data Height (Feet): 5 Height (Inches): 6.00 Weight (Pounds): 154 Appearance: disheveled Mental Status Exam - Mood: anxious, agitated Mental Status Exam - Thought P: illogical, tangential, confusion, disorganized Mental Status Exam - Thought C: delusions (specify) Perceptual Disturbances: hallucinations Assessment/Plan Problem List: (1) Acute metabolic encephalopathy ICD Codes: G93.41 - Metabolic encephalopathy SNOMED: 40618029, 336097423 Status: progressing Assessment/Plan: dc zyprexa 5mg po qhs xanax per family's request dcremeron 15mg po qhs dc zyprexa prn risperdal 2mg po qhs risperdal prn Mirtha Sanabria MD Feb 25, 2019 15:49
[2019-02-25 16:32] VITALS: BP 148/78
--- NOTE | 2019-02-25 16:44 | NUR ---
NURSE NOTES: Patient [facility]ized [facility] notified.
--- NOTE | 2019-02-25 17:05 | NUR ---
NURSE NOTES: Bladder scan indicates 125ml
--- NOTE | 2019-02-25 18:10 | NUR ---
NURSE NOTES: Atenolol 50mg removed in the morning and Pt. HR it was recorded 59 by FLUE GAS ANALYST RN when rechecked it was 57 medication held and returned.
--- NOTE | 2019-02-25 18:12 | NUR ---
NURSE NOTES: Patient extremely agitated constantly trying to get out of bed MD aware and new order received PRN medication administered patient able to calm down and able to converse with family recognizes the family member, son requested to ask the doctor before giving the xanax Dr. Sanabria called waiting the return call.
--- NOTE | 2019-02-25 18:44 | NUR ---
NURSE NOTES: Patient son requested the xanax to be given VS with in normal range medication given as scheduled.
--- NOTE | 2019-02-25 19:28 | NUR ---
HAND-OFF: Report given to ISAAC Rivera patient awake alert, oriented x2, with out no distress family at bed side.
--- NOTE | 2019-02-25 19:30 | NUR ---
NURSE NOTES: Received report from ISAAC Ng. Patient alert, family visiting at bedside. Bed in low position, call light within reach.
--- NOTE | 2019-02-25 19:46 | NUR ---
NURSE NOTES: Scheduled Risperidone is given as ordered ok to give the med by DR. Dial order verified after PRN dose administration and XAnax.
[2019-02-25 20:00] VITALS: BP 163/76
--- NOTE | 2019-02-25 21:40 | NUR ---
NURSE NOTES: Patient alert oriented x2. Son at bedside, very supportive of care. Side rails up x3, call light within reach. No agitation noted. Will continue to monitor.
--- NOTE | 2019-02-25 22:07 | NUR ---
NURSE NOTES: Spoke with Dr Sanabria, notified that son at bedside and he wanted sleeping pill for patient. Dr aware that patient received Xanax and Respirdal earlier. Patient quiet, not agitation noted. No further orders at this time. Will continue to monitor.
--- NOTE | 2019-02-25 23:48 | Neurology Progress Note ---
Interim History Interim History Interim History Ms. Orozco feels well today. She, however, continues to be confused, disoriented, and still not back to her normal self. She denies any new neurologic symptoms. She says she ate well. She continues to be cognitively impoverished. Her behavior has been fair. Review of Systems Neuro Review of Systems Benign. Objective Physical Exam Last Vital Signs Date Time Temp Pulse Resp B/P (MAP) Pulse Ox O2 Delivery O2 Flow Rate FiO2 02/25/19 21:00 Room Air 02/25/19 20:00 97.6 63 18 163/76 (105) 97 Laboratory Tests Test 02/25/19 06:10 Erythrocyte Sedimentation Rate 18 MM/HR (0-30) Hemoglobin A1c 5.5 % (4.3-6.0) Ammonia 20 umol/L (11-32) Vitamin B12 Level 525 PG/ML (193-986) Vitamin D 25-Hydroxy Pending 25-Hydroxy Vitamin D2 Pending 25-Hydroxy Vitamin D3 Pending Folate 16.9 NG/ML (8.6-58.9) Thyroid Stimulating Hormone (TSH) 0.490 uiU/mL (0.358-3.740) Rapid Plasma Reagin Pending Neurologic Exam Objective PHYSICAL EXAMINATION: GENERAL: She is a well-developed, well-nourished, pleasant lady, lying in bed, in no acute distress. HEAD: Normocephalic and atraumatic. EENT: Examination benign. NECK: No neck rigidity was observed. NEUROLOGIC EXAMINATION: MENTAL STATUS EXAMINATION: She was awake and alert. She was oriented to self only. She had no idea of where she was or what the date it was. She was able to recall 3/3 words immediately, but could not remember any of them in 1 minute and 3 minutes. She was unable to tell me who the present President was and who prior presidents were. Her mathematical skills were impaired. Her visuospatial function was also impaired. SPEECH: She had a mild dysarthria. LANGUAGE: She had problems with expression of language, but she was able to comprehend relatively well. CRANIAL NERVE EXAMINATION: II: The visual dias were intact on confrontation testing. III, IV & : The external ocular movements were full and the pupils were 3 mm in diameter and equal, round, regular, and reactive to light. V: She had normal facial sensations, and the temporales, masseters, and pterygoids functioned normally. VII: She had normal facial expressions and no facial asymmetry. VIII: She was able to hear well bilaterally and had no nystagmus. IX: The palate moved symmetrically on phonation. X: She had no hoarseness of voice. XI: The sternocleidomastoids and trapezii functioned normally. XII: The tongue was in the midline without any fasciculations or atrophy. MOTOR SYSTEM: The tone was normal in all four extremities. Examination of muscle mass revealed no focal wasting. Examination of power revealed G 5/5 power in all muscle groups. SENSORY EXAMINATION: She had intact sensations to pinprick and light touch. REFLEXES: 1+ and bilaterally symmetrical at the biceps, triceps, brachioradialis, and knees and 0 at both ankles. The plantar responses were flexor bilaterally. COORDINATION: She performed well on nvjwio-ih-mouq testing. She was unable to perform akxc-nr-jkrs testing. STANCE & GAIT: Deferred. Impression/Recommendations Diagnostic Impression 1. Ms. Bailey Orozco is an 88-year-old, right-handed, lady, who does have a past history of hypertension, bilateral knee surgery, Alzheimer's disease , Parkinson's disease, and a long history of anxiety and depression. She was hospitalized for generalized weakness, unsteadiness on her feet, and what was felt to be an infectious process. She has since been started on appropriate antibiotics, fluids and electrolytes, and as per her son, has improved significantly. In addition, she has also been given neuroleptics and Aricept. 2. She feels well today. She, however, continues to be confused, disoriented, and still not back to her normal self. She denies any new neurologic symptoms. She says she ate well. She continues to be cognitively impoverished. Her behavior has been fair. 3. On neurological examination, at this time, she is awake and alert, but oriented to self only. She has significant problems with recent and remote memory, visuospatial function, higher cognitive function, and language. In addition, she has a mild dysarthria. She, however, does not demonstrate any focal or lateralizing neurological findings. The deep tendon reflexes are globally diminished. 4. Laboratory data on my initial evaluation revealed a relatively normal CBC, a relatively normal chemistry panel, elevated BNP at 239 and on admission, her urinalysis revealed 2+ leukocyte esterase and 2-4 red blood cells and white blood cells per high-power field. 5. Further laboratory tests have been benign for treatable causes of encephalopathy. 6. The patient's history and neurological examination associated with the laboratory data are most consistent with a toxic metabolic encephalopathy, superimposed on structural brain disease related to Alzheimer disease. At this point in time, the patient is not exhibiting any signs of Parkinson's disease and thus the diagnosis is suspect. Recommendations 1. Continue present management. 2. Continue Aricept. 3. Treatment of psychiatric illness as per Dr. Sanabria. 4. If the patient continues to demonstrate no signs of Parkinson disease, then the Sinemet should be discontinued as it could cause more agitation. 5. Await EEG to evaluate the patient for the degree and type of encephalopathy. 6. The patient should be mobilized with the help of physical and occupational therapy. 7. Observe closely. Bennie Tim M.D., M.S.P.H. Bennie Tim MD Feb 25, 2019 23:48
[2019-02-26] VITALS: BP 134/63
[2019-02-26] MEDS: D5 1/2NS 1,000 ML IV SCH ×2 (02:53→13:05)
[2019-02-26 04:00] VITALS: BP 102/59
--- NOTE | 2019-02-26 06:00 | NUR ---
NURSE NOTES: Bladder scan done: 0cc, repeated: 0 cc. 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 Had 240 cc water. See IV flowsheet for IV intake.
[2019-02-26] MEDS: Zosyn 3.375gm q8h **Extended infusion IVPB SCH ×4 (06:41→14:00)
--- NOTE | 2019-02-26 07:45 | NUR ---
HAND-OFF: Report given to ISAAC Ng. Patient without any distress.
--- NOTE | 2019-02-26 07:48 | NUR ---
NURSE NOTES: During shift change patient alert oriented with out no distress, bed on low position locked, bed alarm on. will continue to monitor.
[2019-02-26 08:29] VITALS: BP 133/93
[2019-02-26] MEDS: Donepezil 10mg tab ORAL SCH (09:08)
[2019-02-26] MEDS: Levodopa/Carbidopa 25/100 tab ORAL SCH (09:08)
[2019-02-26] MEDS: Irbesartan 150mg tablet ORAL SCH (09:08)
[2019-02-26 09:09] VITALS: BP 133/93
[2019-02-26] MEDS: ALPRAZolam 0.25mg tab ORAL SCH (09:09)
--- NOTE | 2019-02-26 10:21 | NUR ---
PT NOTES: Cleared by Hernandez for PT. Pt in bed, sound asleep. Family at bedside declines PT interventions. Will check back later today if schedule permits.
--- NOTE | 2019-02-26 13:26 | NUR ---
DISCHARGE PLANNED PATIENT WILL DISCHARGE TO: [facility] ROOM [address] SKILLED T: [phone] FOR NURSE TO NURSE REPORT [facility] HAS BEEN ARRANGED FOR 1530 ONLINE ADVERTISING MANAGER Addendum: 02/26/19 at 1337 by NORBERT CRENSHAW LVN LVN SPOKE WITH PATIENT'S SONSHILO (T:[phone]) WHO IS IN AGREEMENT WITH DISCHARGE PLAN
--- NOTE | 2019-02-26 14:20 | General Progress Note ---
Assessment/Plan Problem List: (1) Parkinson disease ICD Codes: G20 - Parkinson's disease SNOMED: 75619841 (2) Dementia ICD Codes: F03.90 - Unspecified dementia without behavioral disturbance SNOMED: 68718672 (3) Generalized weakness ICD Codes: R53.1 - Weakness SNOMED: 84790031 (4) HTN (hypertension) ICD Codes: I10 - Essential (primary) hypertension SNOMED: 47823394 Assessment/Plan: Continue with current medications. I discussed the case with Dr. Sanabria. Dc to [facility] today Subjective Allergies: Coded Allergies: No Known Allergies (Unverified , 02/22/19) Subjective feels ok Objective Last 24 Hour Vital Signs Date Time Temp Pulse Resp B/P (MAP) Pulse Ox O2 Delivery O2 Flow Rate FiO2 02/26/19 09:09 69 133/93 02/26/19 09:08 133/93 02/26/19 09:00 Room Air 02/26/19 08:29 97.5 69 17 133/93 (106) 97 02/26/19 04:00 98.8 62 17 102/59 (73) 95 02/26/19 00:00 97.4 69 17 134/63 (86) 95 02/25/19 21:00 Room Air 02/25/19 20:00 97.6 63 18 163/76 (105) 97 02/25/19 16:32 98.2 64 20 148/78 (101) 95 Intake and Output 02/25/19 02/26/19 18:59 06:59 Intake Total 440 ml 1140 ml Output Total 550 ml Balance -110 ml 1140 ml Intake Oral 440 ml 240 ml IV Total 900 ml Output Urine Total 550 ml # Voids 4 4 Height (Feet): 5 Height (Inches): 6.00 Weight (Pounds): 154 Cardiovascular: normal rate Respiratory/Chest: lungs clear Cornelio Ferrer MD February 26, 2019 14:20
[2019-02-26] MEDS ORDERED: D5 1/2NS 1000ml IV ONE (16:48)
--- NOTE | 2019-02-26 17:50 | NUR ---
NURSE NOTES: Patient discharged from the unit stable condition with out no distress calm, to [facility] report given to Yany GRAY at 1430. Family aware and son at bedside during discharge, discharge packet given to ambulance personnel, transported to the facility by ambulance safely.
--- NOTE | 2019-02-26 22:43 | Psych Consult Progress Note ---
Psychiatry Progress Note Psychiatry Progress Note Neurological/Psychiatric: Reports: anxiety, depressed, emotional problems Allergies: Coded Allergies: No Known Allergies (Unverified , 02/22/19) Objective Data Height (Feet): 5 Height (Inches): 6.00 Weight (Pounds): 154 General Appearance: alert, confused, agitated Appearance: disheveled Behavior Mannerisms: good eye contact Mental Status Exam - Affect: constricted Mental Status Exam - Mood: anxious, agitated Speech: clear Mental Status Exam - Thought P: illogical, tangential, confusion Mental Status Exam - Thought C: paranoia Assessment/Plan Problem List: (1) Acute metabolic encephalopathy ICD Codes: G93.41 - Metabolic encephalopathy SNOMED: 08609322, 131691458 Status: unchanged Assessment/Plan: xanax per family's request risperdal 2mg po qhs risperdal prn Mirtha Sanabria MD February 26, 2019 22:43
--- NOTE | 2019-02-27 01:12 | Cardiology Report ---
APPROVED REPORT EKG Measurement Heart [id number] [place] [id number] Normal sinus rhythm Normal ECG
--- NOTE | 2019-02-27 13:02 | Discharge Summary ---
Discharge Summary Discharge Summary _ DATE OF ADMISSION: 02/22/2019 DATE OF DISCHARGE: 02/26/2019 DISCHARGED BY: Dr. Cornelio Ferrer CONSULTANTS: Dr. Mirtha Leary BRIEF HOSPITAL COURSE: Patient is an 88-year-old [place] female, lives at home with caregiver. The patient had a recent urinary tract infection and was given nitrofurantoin by PMD. The week prior, she completed antibiotics. However, she started to have chills. PMD was called and was advised to go to ED for further evaluation. She has medical history significant for hypertension. On evaluation at the ED, vital signs were stable. Blood work did not show any leukocytosis. Hemoglobin and hematocrit were stable. Urinalyses with positive nitrite, 2+ ketones, 2+ blood, 1+ bilirubin, 2+ leukocyte esterase, 2-4 RBC, 2- 4 WBC and few bacteria. Chest x-ray did not show any acute disease. Patient was admitted with diagnosis of UTI. Patient was started on antibiotics. Daughter noticed that the patient had slurred speech and prior to admission, patient was agitated and was not sleeping. Psychiatry and neurologist were consulted. She was started on Zyprexa. Xanax was discontinued. She was given Remeron. Urine culture did not isolate any growth. Blood culture was negative. Antibiotic was discontinued. Neurologist was consulted. Patient has a long history of anxiety and depression for which she had been on Xanax for numerous years. She was functioning relatively well until recently she was noted to have alteration in level of consciousness and had shaking chills. She was confused, disoriented, and agitated. Neuro examination did not demonstrate any focal or lateralizing neurological findings. Deep tendon reflexes were globally diminished. She was checked for treatable causes of encephalopathy. 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 Patient had a bladder scan done that showed 100 to 200 ml residual urine. Urologist was consulted. Patient had urinary incontinence. Patient was agitated. Family requested Xanax. Zyprexa and Remeron were discontinued. She was placed on Risperdal 2 mg p.o. nightly. Folate and vitamin B12 were normal. TSH normal. Ammonia was low. ESR was normal. RPR was nonreactive. She was given PT mobility. Mental status improved. She was eventually discharged to SNF. FINAL DIAGNOSES: Acute toxic metabolic encephalopathy Dementia Parkinson's disease Hypertension Urinary incontinence Generalized weakness DISPOSITION: Patient was discharged to a SNF. DISCHARGE MEDICATIONS: Refer to Discharge Medication List. I have been assigned to complete a discharge summary on this account, I was not involved with the patient's management. Ilene Ochoa NP February 27, 2019 13:02
== END 2019-02-26 18:09 | DRG 93 ==
LOC: EDBD 10:17 → EMR 10:58 → EDBEDREQ 11:57 → 3E 12:38
DX: G92 Toxic encephalopathy (principal); G20 Parkinson's disease; F02.80 Dementia in other diseases classified elsewhere, unspecified severity, without behavioral disturbance, psychotic disturbance, mood disturbance, and anxiety; I10 Essential (primary) hypertension; F41.8 Other specified anxiety disorders; G30.9 Alzheimer's disease, unspecified; R32 Unspecified urinary incontinence
CPT/HCPCS: 36415; 71045; 80048; 80053; 81003; 82140; 82306; 82550; 82553; 82607; 82746; 83036; 83605; 83880; 84443; 85025; 85651; 86592; 87040; 87086; 93005; 96361; 96365; 99285